=== PATIENT | male | born 1980 | race Caucasian/White ===

== ENCOUNTER → 2019-09-05 | Outpatient (CLI) | payer OTHER ==
[~2019-09-05] MED LIST: CONRAY-43 43% 50ML VIAL (Q9960) As Ordered ONE; LIDOCAINE 1% MDV 20ML VIAL As Ordered ONE; TRIAMCINOLONE ACETONIDE SUSP 40 MG/ML VIAL (J3301) As Ordered ONE
--- NOTE | 2019-09-05 11:52 | REP ---
Reason For Exam/Comment: Left hip pain Procedure: Left hip arthrocentesis The procedure was performed by SAÚL Chiu, under the direct supervision of Dr. Amin. The benefits and risks including but not limited to pain, infection, bleeding and anaphylaxis were explained to the patient and informed consent was obtained both verbally and written. Directly prior to the start of the procedure, a formal timeout was completed in the procedure room. The left femoral neck joint space was localized using fluoroscopic guidance. The skin was prepped and draped in the usual sterile fashion. 5 mL of 1% lidocaine 10 mg/ml was used as a local anesthetic. Using fluoroscopic guidance a 22-gauge spinal needle was inserted and advanced to the left femoral neck joint space . 1 mL of Conray 43 was injected to verify needle placement. A 10 mL solution containing a 9 mL 1% lidocaine 10 mg/ml and 1 ml of Kenalog 40 mg/ml was injected into the joint. The needle was removed and hemostasis was achieved. The patient tolerated the procedure well and there were no immediate complications. 0.1 minutes of fluoroscopy time was utilized for this procedure. Some fluoroscopic images are performed with last image hold technology. These images require no additional radiation. Reviewed by SAÚL Caruso 09/05/2019 10:18 A Electronically Signed by Tim Amin MD 09/05/2019 11:44 A
== END ==
LOC: M RADPRO 08:33
PROVIDERS: ATTEND Physician Assistant Surgical
DX: M25.552 Pain in left hip (principal)
CPT/HCPCS: 20610; 77002; J3301; Q9960

== ENCOUNTER → 2020-04-12 | Outpatient (CLI) | payer OTHER | LOC: M LABSMTC 10:34 | PROVIDERS: ATTEND Orthopaedic Surgery | DX: Z20.828 Contact with and (suspected) exposure to other viral communicable diseases (principal) | CPT/HCPCS: C9803; U0003 ==

== ENCOUNTER 2021-08-07 15:16 | Emergency (ER) | payer OTHER ==
[~2021-08-07] VITALS: Ht 165.1 cm; Wt 99.7 kg
[2021-08-07] MEDS ORDERED: OXYMETAZOLINE 0.05% NASAL SPRAY (AFRIN) ONE (15:40)
[2021-08-07] MEDS ORDERED: SILVER NITRATE APPLICATOR TOP ONE (15:40)
[2021-08-07 17:40] VITALS: BP 149/86
== END 2021-08-07 17:42 | disposition home or self-care (01) ==
LOC: M ED 15:16
DX: R04.0 Epistaxis (principal); I10 Essential (primary) hypertension

== ENCOUNTER 2025-07-23 10:06 | Emergency (ER) | payer OTHER ==
[~2025-07-23] VITALS: Ht 165.1 cm; Wt 93.6 kg
[2025-07-23] MEDS ORDERED: NALO4SPR20 (10:37)
[2025-07-23] MEDS: SILVER NITRATE APPLICATOR (1 = QTY 10) TOP ONE (11:15)
[2025-07-23] MEDS: OXYMETAZOLINE 0.05% NASAL SPRAY ONE (11:15)
[2025-07-23 11:29] LABS: BASO # 0.0 10^3/uL (0.0-0.2); BASO % 0.5 % (0.0-1.0); EOS # 0.1 10^3/uL (0.0-0.5); EOS % 1.3 % (0.0-3.0); LYMPH # 1.2 10^3/uL (1.5-5.0); LYMPH % 19.3 % (24.0-44.0); MONO # 0.4 10^3/uL (0.0-0.8); MONO % 6.4 % (2.0-8.0); NEUTROPHILS # 4.6 10^3/uL (1.5-8.5); NEUTROPHILS % 71.9 % (36.0-66.0); PLATELET COUNT, AUTOMATED 216 10^3/uL (150-450)
[2025-07-23 12:27] VITALS: BP 137/85; TEMP 98; O2SAT 100
== END 2025-07-23 12:28 | disposition home or self-care (01) ==
LOC: M ED 10:06
DX: R04.0 Epistaxis (principal); F10.10 Alcohol abuse, uncomplicated; Z79.899 Other long term (current) drug therapy